=== PATIENT | female | born 1995 | race Caucasian/White ===

== ENCOUNTER 2016-08-01 15:22 | Emergency (ER) | payer MEDICAID ==
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
[2016-08-01 18:45] VITALS: BP 118/64
== END 2016-08-01 18:43 | disposition home or self-care (01) ==
LOC: ER 15:22
DX: S01.512A Laceration without foreign body of oral cavity, initial encounter (principal); S00.33XA Contusion of nose, initial encounter; R51 Headache; Y04.8XXA Assault by other bodily force, initial encounter
CPT/HCPCS: 99283

== ENCOUNTER 2016-09-08 18:39 | Emergency (ER) | payer MEDICAID ==
[2016-09-08] MEDS ORDERED: OXYCODONE-ACETAMINOPHEN 5-325 MG TABLET PO ONE (19:42)
[2016-09-08] MEDS ORDERED: ONDANSETRON 4 MG TAB.RAPDIS PO ONE (19:42)
--- NOTE | 2016-09-08 19:45 | ER Document Report ---
ED Medical Screen (RME) - General Chief Complaint: Abdominal Pain Stated Complaint: ABDOMINAL PAIN Notes: 20 year old female with RUQ and epigastric pain x2 weeks, much worse over the past day or so, became severe at work. Worse after eating. No N/V, no fever. No surgeries or reported PMH. TRAVEL OUTSIDE OF THE U.S. IN LAST 30 DAYS: No - Related Data Allergies/Adverse Reactions: No Known Allergies Allergy (Verified 08/01/16 16:09) Past Medical History - Social History Chew tobacco use (# tins/day): No Frequency of alcohol use: None Drug Abuse: Marijuana Renal/ Medical History: Denies: Hx Peritoneal Dialysis Physical Exam - Vital signs Vitals: Temp Pulse Resp BP Pulse Ox 98.0 F 74 16 125/59 L 98 09/08/16 19:19 09/08/16 19:19 09/08/16 19:19 09/08/16 19:19 09/08/16 19:19 - General General appearance: Alert, Anxious In distress: Mild - appears to be in some pain, appears mildly anxious - Abdominal Tenderness: Tender - definite tenderness in RUQ and epigastric area, worst in RUQ, positive fuentes's sign, Fuentes's sign Course - Re-evaluation Re-evalutation: patient with positive fuentes's sign on exam (limited by sitting). Ordering meds , U/S, discussed with Dr. Saxena per [facility] guidelines. - Vital Signs Vital signs: Temp Pulse Resp BP Pulse Ox 98.0 F 74 16 125/59 L 98 09/08/16 19:19 09/08/16 19:19 09/08/16 19:19 09/08/16 19:19 09/08/16 19:19
[2016-09-08 22:46] LABS: ABSOLUTE BASOPHILS # (AUTO) 0.1 10^3/uL (0.0-0.2); ABSOLUTE EOSINOPHILS # (AUTO) 0.1 10^3/uL (0.0-0.6); ABSOLUTE LYMPHOCYTES (AUTO) 3.3 10^3/uL (0.5-4.7); ABSOLUTE MONOCYTES (AUTO) 0.8 10^3/uL (0.1-1.4); BASOPHILS % (AUTO) 0.7 % (0-2); EOSINOPHILS % (AUTO) 0.6 % (0-6); HEMATOCRIT 44.8 % (36.0-47.0); HEMOGLOBIN 15.1 g/dL (12.0-15.5); HGB HCT DIFFERENCE 0.5; MEAN CORPUSCULAR HEMOGLOBIN 29.7 pg (27.0-33.4); MEAN CORPUSCULAR HGB CONC 33.8 g/dL (32.0-36.0); MEAN CORPUSCULAR VOLUME 88 fl (80-97); MONOCYTES % (AUTO) 6.3 % (3-13); RED BLOOD COUNT 5.11 10^6/uL (3.72-5.28); RED CELL DISTRIBUTION WIDTH 12.6 % (11.5-14.0); SEGMENTED NEUTROPHILS % (AUTO) 65.4 % (42-78); WHITE BLOOD COUNT 12.2 10^3/uL (4.0-10.5)
[2016-09-08 22:55] LABS: APPEARANCE,URINE SLIGHTLY-CLOUDY; BILIRUBIN,URINE NEGATIVE (NEGATIVE); GLUCOSE, URINE NEGATIVE (NEGATIVE); KETONES,URINE NEGATIVE (NEGATIVE); LEUKOCYTE ESTERASE,URINE NEGATIVE (NEGATIVE); NITRITE,URINE NEGATIVE (NEGATIVE); PROTEIN,URINE 30 mg/dL (NEGATIVE)
[2016-09-08 23:19] LABS: ALANINE AMINOTRANSFERASE 18 U/L (5-35); ALBUMIN 4.9 g/dL (3.7-5.6); ALKALINE PHOSPHATASE 97 U/L (50-135); ANION GAP 11 (5-19); ASPARTATE AMINO TRANSFERASE 37 U/L (5-30); BILIRUBIN,TOTAL 1.6 mg/dL (0.2-1.3); BLOOD UREA NITROGEN 12 mg/dL (7-20); CALCIUM 9.8 mg/dL (8.4-10.2); CARBON DIOXIDE 26 mmol/L (22-30); CHLORIDE 104 mmol/L (98-107); CREATININE RESULT 0.71 mg/dL (0.52-1.25); GLUCOSE 102 mg/dL (75-110); LIPASE 59.4 U/L (23-300); POTASSIUM 3.7 mmol/L (3.6-5.0); SODIUM 141.2 mmol/L (137-145); TOTAL PROTEIN 8.2 g/dL (6.3-8.2)
[2016-09-09] MEDS ORDERED: CEPHALEXIN 500 MG CAPSULE PO ONE (02:14)
--- NOTE | 2016-09-09 02:22 | ER Document Report ---
ED General - General Chief Complaint: Abdominal Pain Stated Complaint: ABDOMINAL PAIN Notes: Patient is a 20-year-old female without past medical history, no prior surgical history who presents with concerns of right upper quadrant abdominal pain as well as right flank pain. States the pain is intermittent over the last several months but was much worse and I which is what prompted her to come to the emergency room for further evaluation. Describes the pain as an intermittent, severe, stabbing pain. Nothing improves or worsens the pain. She denies history of similar symptoms prior to the last 1-2 months. She has not seen her primary care physician regarding today's concerns. She denies any dysuria, vaginal bleeding, vaginal discharge, vomiting or diarrhea. TRAVEL OUTSIDE OF THE [place] IN LAST 30 DAYS: No - Related Data Allergies/Adverse Reactions: No Known Allergies Allergy (Verified 08/01/16 16:09) Past Medical History - General Information source: Patient - Social History Smoking Status: Never Smoker Chew tobacco use (# tins/day): No Frequency of alcohol use: None Drug Abuse: Marijuana Family History: Reviewed & Not Pertinent Patient has suicidal ideation: No Patient has homicidal ideation: No Renal/ Medical History: Denies: Hx Peritoneal Dialysis Review of Systems - Review of Systems Notes: Constitutional: Negative for fever. HENT: Negative for sore throat. Eyes: Negative for visual changes. Cardiovascular: Negative for chest pain. Respiratory: Negative for shortness of breath. Gastrointestinal: Positive for abdominal pain, negative for vomiting or diarrhea. Genitourinary: Negative for dysuria. Musculoskeletal: Negative for back pain. Skin: Negative for rash. Neurological: Negative for headaches, weakness or numbness. 10 point ROS negative except as marked above and in HPI. Physical Exam - Vital signs Vitals: Temp Pulse Resp BP Pulse Ox 98.0 F 74 16 125/59 L 98 09/08/16 19:19 09/08/16 19:19 09/08/16 19:19 09/08/16 19:19 09/08/16 19:19 Interpretation: Normal Notes: PHYSICAL EXAMINATION: GENERAL: Well-appearing, well-nourished and in no acute distress. HEAD: Atraumatic, normocephalic. EYES: Pupils equal round and reactive to light, extraocular movements intact, sclera anicteric, conjunctiva are normal. ENT: nares patent, oropharynx clear without exudates. Moist mucous membranes. NECK: Normal range of motion, supple without lymphadenopathy LUNGS: Breath sounds clear to auscultation bilaterally and equal. No wheezes rales or rhonchi. HEART: Regular rate and rhythm without murmurs ABDOMEN: Soft, nontender, normoactive bowel sounds. No guarding, no rebound. No masses appreciated. EXTREMITIES: Normal range of motion, no pitting or edema. No cyanosis. NEUROLOGICAL: No focal neurological deficits. Moves all extremities spontaneously and on command. PSYCH: Normal mood, normal affect. SKIN: Warm, Dry, normal turgor, no rashes or lesions noted. Course - Re-evaluation Re-evalutation: 09/09/16 02:20 Patient presents with right upper quadrant and right flank pain. Abdominal exam is overall benign at the time of my assessment. Right upper quadrant ultrasound does not demonstrate any evidence of an acute cholecystitis. Urinalysis does demonstrate hematuria without pyuria. Patient denies currently being on her menstrual cycle. Her clinical history could also be consistent with a nephrolithiasis so a CT scan was obtained without contrast to evaluate for possible nephrolithiasis. This likewise was unremarkable without any evidence of acute pathology. Patient continued to be pain free throughout her time in the emergency department. Will empirically treat with antibiotics to see if the hematuria as a result of a cystitis although have instructed the patient that her urinalysis does not show an active infection and culture data will be obtained.At this time will discharge with return precautions and follow- up recommendations. Verbal discharge instructions given a the bedside and opportunity for questions given. Medication warnings reviewed. Patient is in agreement with this plan and has verbalized understanding of return precautions and the need for primary care follow-up in the next 24-72 hours. - Vital Signs Vital signs: Temp Pulse Resp BP Pulse Ox 98.0 F 74 16 125/59 L 98 09/08/16 19:19 09/08/16 19:19 09/08/16 19:19 09/08/16 19:19 09/08/16 19:19 - Laboratory Result Diagrams: 09/08/16 22:37 09/08/16 22:37 Laboratory results interpreted by me: 09/08/16 09/08/16 09/08/16 22:37 22:37 22:37 WBC 12.2 H Total Bilirubin 1.6 H AST 37 H Urine Protein 30 H Urine Blood LARGE H Urine Urobilinogen 2.0 H - Diagnostic Test Radiology reviewed: Reports reviewed Discharge - Discharge Clinical Impression: Right flank pain, Hematuria Condition: Good Disposition: HOME, SELF-CARE Additional Instructions: You have been seen in the Emergency Department (ED) for abdominal pain. Your evaluation did not identify a clear cause of your symptoms but was generally reassuring. We will trial a dose of antibiotics to see if this could clear the blood in your urine as your CT scan does not demonstrate any kidney stones. Please follow up with your doctor as soon as possible regarding today's emergent visit and the symptoms that are bothering you. Return to the ED if your abdominal pain worsens or fails to improve, you develop bloody vomiting, bloody diarrhea, you are unable to tolerate fluids due to vomiting, fever greater than 101, or other symptoms that concern you. Prescriptions: Cephalexin Monohydrate [Keflex 500 mg Capsule] 500 mg PO QID #20 capsule Referrals: TACOS GR MD [Primary Care Provider] - Follow up in 3-5 days
[2016-09-09 02:38] VITALS: BP 118/71
== END 2016-09-09 02:38 | disposition home or self-care (01) ==
LOC: ER 18:39
DX: R10.9 Unspecified abdominal pain (principal); R10.11 Right upper quadrant pain; R31.9 Hematuria, unspecified
CPT/HCPCS: 99284; 36415; 87086; 83690; 84703; 85025; 80053; 81001; 76705; 74176; S0119

== ENCOUNTER 2019-04-21 23:51 | Emergency (ER) | payer SELFPAY ==
[2019-04-22] MEDS ORDERED: ONDANSETRON HCL INJ/PF 4 MG/2 ML SDV IV ONE (00:33)
[2019-04-22] MEDS ORDERED: NORMAL SALINE 1000 ML 1,000 ML IV ONE ×2 (00:33→02:15)
[2019-04-22 00:45] LABS: ABSOLUTE BASOPHILS # (AUTO) 0.1 10^3/uL (0.0-0.2); ABSOLUTE EOSINOPHILS # (AUTO) 0.7 10^3/uL (0.0-0.6); ABSOLUTE LYMPHOCYTES (AUTO) 2.1 10^3/uL (0.5-4.7); ABSOLUTE NEUT (AUTO) 12.3 10^3/uL (1.7-8.2); BASOPHILS % (AUTO) 0.5 % (0-2); EOSINOPHILS % (AUTO) 4.5 % (0-6); HEMATOCRIT 42.3 % (36.0-47.0); HEMOGLOBIN 14.3 g/dL (12.0-15.5); LYMPHOCYTES % (AUTO) 13.2 % (13-45); MEAN CORPUSCULAR HEMOGLOBIN 29.5 pg (27.0-33.4); MEAN CORPUSCULAR HGB CONC 33.8 g/dL (32.0-36.0); MEAN CORPUSCULAR VOLUME 87 fl (80-97); MONOCYTES % (AUTO) 6.2 % (3-13); PLATELET COUNT 300 10^3/uL (150-450); RED BLOOD COUNT 4.85 10^6/uL (3.72-5.28); RED CELL DISTRIBUTION WIDTH 12.8 % (11.5-14.0); SEGMENTED NEUTROPHILS % (AUTO) 75.6 % (42-78); TOTAL CELLS COUNTED % (AUTO) 100 %; WHITE BLOOD COUNT 16.3 10^3/uL (4.0-10.5)
[2019-04-22 01:00] LABS: ALBUMIN 4.1 g/dL (3.5-5.0); ALKALINE PHOSPHATASE 86 U/L (38-126); ANION GAP 10 (5-19); ASPARTATE AMINO TRANSFERASE 87 U/L (14-36); BILIRUBIN,DIRECT 0.1 mg/dL (0.0-0.4); BILIRUBIN,TOTAL 0.5 mg/dL (0.2-1.3); BLOOD UREA NITROGEN 11 mg/dL (7-20); CALCIUM 9.1 mg/dL (8.4-10.2); CARBON DIOXIDE 27 mmol/L (22-30); CHLORIDE 101 mmol/L (98-107); GLUCOSE 96 mg/dL (75-110); POTASSIUM 3.9 mmol/L (3.6-5.0); TOTAL PROTEIN 6.5 g/dL (6.3-8.2)
--- NOTE | 2019-04-22 01:04 | ER Document Report ---
ED General - General Chief Complaint: Accidental Overdose Stated Complaint: OVERDOSE Time Seen by Provider: 04/22/19 00:05 Primary Care Provider: TACOS GR MD [COMMUNITY BASED STAFF] - Follow up as needed Mode of Arrival: Medic Information source: Patient TRAVEL OUTSIDE OF THE [place] IN LAST 30 DAYS: No - HPI Notes: Patient is brought by ambulance to the hospital. Patient states somewhere around 7:30 PM tonight she snorted Percocet. She states that she about $30 worth but does not know exactly what she was given. She states she did no other drugs. She states she did not inject anything or swallow anything. No alcohol. She states the only thing she did was snort the Percocet. She states she has never done this before. Her significant other is in the room states that he did not know she had done this. He did not notice anything abnormal but approximately 10:00pm patient became unresponsive. Ambulance was called and Narcan was given approximately 10:50 PM. Patient states he currently feels nauseous but otherwise has no complaints. She states she has no suicidal or homicidal ideations. She states this was not a plan to harm herself. She states she did do to relieve some stress. She states she smokes marijuana but otherwise does not use any illicit drugs. - Related Data Allergies/Adverse Reactions: No Known Allergies Allergy (Verified 08/01/16 16:09) Past Medical History - General Information source: Patient - Social History Smoking Status: Former Smoker Frequency of alcohol use: Occasional Drug Abuse: Marijuana, Other - Percocet Family History: Reviewed & Not Pertinent Patient has suicidal ideation: No Patient has homicidal ideation: No Renal/ Medical History: Denies: Hx Peritoneal Dialysis Review of Systems - Review of Systems Constitutional: denies: Chills, Fever Cardiovascular: denies: Chest pain, Palpitations Respiratory: denies: Cough, Short of breath Gastrointestinal: Nausea -: Yes All other systems reviewed and negative Physical Exam - Vital signs Interpretation: Normal - General General appearance: Appears well, Alert - HEENT Head: Normocephalic, Atraumatic Eyes: Normal Pupils: PERRL - Respiratory Respiratory status: No respiratory distress Chest status: Nontender Breath sounds: Normal Chest palpation: Normal - Cardiovascular Rhythm: Regular Heart sounds: Normal auscultation Murmur: No - Abdominal Inspection: Normal Distension: No distension Bowel sounds: Normal Tenderness: Nontender Organomegaly: No organomegaly - Back Back: Normal, Nontender - Extremities General upper extremity: Normal inspection, Nontender, Normal color, Normal ROM, Normal temperature General lower extremity: Normal inspection, Nontender, Normal color, Normal ROM, Normal temperature, Normal weight bearing. No: Bhupendra's sign - Neurological Neuro grossly intact: Yes Cognition: Normal Orientation: AAOx4 [place] Coma Scale Eye Opening: Spontaneous [place] Coma Scale Verbal: Oriented Guillermina Coma Scale Motor: Obeys Commands [place] Coma Scale Total: 15 Speech: Normal Motor strength normal: LUE, RUE, LLE, RLE Sensory: Normal - Psychological Associated symptoms: Normal affect, Normal mood - Skin Skin Temperature: Warm Skin Moisture: Dry Skin Color: Normal Course - Re-evaluation Re-evalutation: 04/22/19 02:07 Patient reevaluated at this time. She is resting comfortably in the bed without any complaints. Her vital signs are normal except bp is trending down slightly. currently 99sys but no complaints. will rebolus with fluid. - Laboratory Result Diagrams: 04/22/19 00:23 04/22/19 00:23 Laboratory results interpreted by me: 04/22/19 04/22/19 00:23 00:23 WBC 16.3 H Absolute Neuts (auto) 12.3 H Absolute Eos (auto) 0.7 H AST 87 H Discharge - Discharge Clinical Impression: Narcotic overdose Qualifiers: Encounter type: initial encounter Injury intent: accidental or unintentional Qualified Code(s): T40.601A - Poisoning by unspecified narcotics, accidental (unintentional), initial encounter Condition: Stable Disposition: HOME, SELF-CARE Instructions: Narcotic Abuse ([facility]) Additional Instructions: Using illegal drugs is very dangerous and can lead to . You were very close to dying tonight. Please seek help for this as soon as possible by calling [place] [facility] at . Referrals: TACOS GR MD [COMMUNITY BASED STAFF] - Follow up in 3-5 days
[2019-04-22 04:05] LABS: APPEARANCE,URINE CLOUDY; BILIRUBIN,URINE NEGATIVE (NEGATIVE); COLOR,URINE YELLOW; GLUCOSE, URINE NEGATIVE (NEGATIVE); KETONES,URINE TRACE mg/dL (NEGATIVE); LEUKOCYTE ESTERASE,URINE NEGATIVE (NEGATIVE); NITRITE,URINE NEGATIVE (NEGATIVE); PROTEIN,URINE 100 mg/dL (NEGATIVE); URINE SPECIFIC GRAVITY 1.023
[2019-04-22 04:23] LABS: URINE AMPHETAMINES SCREEN NEGATIVE; URINE BARBITURATES SCREEN NEGATIVE; URINE BENZODIAZEPINES SCREEN UNCONFIRMED POSITIVE; URINE COCAINE SCREEN NEGATIVE; URINE MARIJUANA (THC) SCREEN UNCONFIRMED POSITIVE; URINE METHADONE SCREEN NEGATIVE; URINE PHENCYCLIDINE SCREEN NEGATIVE
[2019-04-22 05:43] VITALS: BP 102/53
[2019-04-23 08:37] LABS: HEPATITIS C VIRUS AB <0.1 s/co ratio (0.0-0.9)
[2019-04-23 09:26] LABS: HEPATITS B SURFACE ANTIGEN Negative (Negative)
== END 2019-04-22 05:42 | disposition home or self-care (01) ==
LOC: ER 23:51
DX: T40.601A Poisoning by unspecified narcotics, accidental (unintentional), initial encounter (principal); R11.0 Nausea; F12.90 Cannabis use, unspecified, uncomplicated; Z87.891 Personal history of nicotine dependence
CPT/HCPCS: 99284; 96361; 96374; 36415; 85025; 81025; 80053; 81001; 87340; 86701; 80307; 86803; 86804; J2405; J7030

== ENCOUNTER 2019-08-29 14:13 | Emergency (ER) | payer SELFPAY ==
--- NOTE | 2019-08-29 15:41 | ER Document Report ---
ED Medical Screen (RME) - General Chief Complaint: Abdominal Pain Stated Complaint: FLANK PAIN Time Seen by Provider: 08/29/19 15:33 TRAVEL OUTSIDE OF THE [place].S[place] IN LAST 30 DAYS: No - HPI Notes: 08/29/19 15:40 23-year-old female to the emergency department with complaints of right upper quadrant abdominal pain that has been ongoing for the past week. She denies associated nausea vomiting. She states it does seem to get a little bit worse when she eats. She states she feels like she has a lot of gas. She denies any chest pain, shortness of breath, nausea, vomiting, diarrhea. She denies any sick contacts. She denies possibility of . I performed a medical screening exam on the patient and determined that she will need further evaluation by main side provider. I have placed initial orders and imaging studies to help expedite her care. - Related Data Allergies/Adverse Reactions: No Known Allergies Allergy (Verified 08/01/16 16:09) Past Medical History - Social History Frequency of alcohol use: Social Drug Abuse: None Renal/ Medical History: Denies: Hx Peritoneal Dialysis Physical Exam - Vital signs Vitals: Temp Pulse Resp BP Pulse Ox 98.3 F 67 16 125/73 100 08/29/19 15:11 08/29/19 15:11 08/29/19 15:11 08/29/19 15:11 08/29/19 15:11 Course - Vital Signs Vital signs: Temp Pulse Resp BP Pulse Ox 98.3 F 67 16 125/73 100 08/29/19 15:11 08/29/19 15:11 08/29/19 15:11 08/29/19 15:11 08/29/19 15:11
--- NOTE | 2019-08-29 16:48 | RADIOLOGY REPORT (SQ) ---
EXAM DESCRIPTION: U/S ABDOMEN LIMITED W/O DOP COMPLETED DATE/TIME: 08/29/2019 4:38 pm REASON FOR STUDY: RUQ abd pain COMPARISON: Abdominal ultrasound 09/08/2016 CT abdomen pelvis 09/09/2016 TECHNIQUE: Dynamic and static grayscale images acquired of the right upper quadrant abdomen and tomas rded on PACS. Additional selected color Doppler and spectral images recorded. LIMITATIONS: Midline bowel gas, body habitus FINDINGS: PANCREAS: Not well seen LIVER: No masses. Echotexture normal. LIVER VASCULATURE: Normal directional flow of the main portal vein and hepatic veins. GALLBLADDER: No stones. Normal wall thickness. No pericholecystic fluid. ULTRASOUND-DETECTED SHELTON'S SIGN: Negative. INTRAHEPATIC DUCTS AND COMMON DUCT: CBD and intrahepatic ducts normal caliber. No filling defects. INFERIOR VENA CAVA: Normal flow. AORTA: No aneurysm. RIGHT KIDNEY: Normal size. Normal echogenicity. No solid or suspicious masses. No hydronephrosis. No calcifications. PERITONEAL AND RIGHT PLEURAL SPACE: No ascites or effusions. OTHER: No other significant findings. IMPRESSION: No gallstones. No gallbladder wall thickening. No right upper quadrant free fluid. Li munira unremarkable. TECHNICAL DOCUMENTATION: JOB ID: [id number] [employer] ([employer])- All Rights Reserved Reading location - IP/workstation name: [email or web address]
[2019-08-29 17:25] LABS: APPEARANCE,URINE SLIGHTLY-CLOUDY; BILIRUBIN,URINE NEGATIVE (NEGATIVE); COLOR,URINE AMBER; GLUCOSE, URINE NEGATIVE (NEGATIVE); KETONES,URINE 20 mg/dL (NEGATIVE); LEUKOCYTE ESTERASE,URINE NEGATIVE (NEGATIVE); NITRITE,URINE NEGATIVE (NEGATIVE); PROTEIN,URINE 30 mg/dL (NEGATIVE); URINE SPECIFIC GRAVITY 1.029
[2019-08-29 17:34] LABS: ABSOLUTE BASOPHILS # (AUTO) 0.1 10^3/uL (0.0-0.2); ABSOLUTE EOSINOPHILS # (AUTO) 0.1 10^3/uL (0.0-0.6); ABSOLUTE LYMPHOCYTES (AUTO) 2.4 10^3/uL (0.5-4.7); ABSOLUTE MONOCYTES (AUTO) 0.7 10^3/uL (0.1-1.4); ABSOLUTE NEUT (AUTO) 6.6 10^3/uL (1.7-8.2); BASOPHILS % (AUTO) 0.6 % (0-2); EOSINOPHILS % (AUTO) 1.5 % (0-6); HEMATOCRIT 42.7 % (36.0-47.0); HEMOGLOBIN 14.7 g/dL (12.0-15.5); MEAN CORPUSCULAR HEMOGLOBIN 30.1 pg (27.0-33.4); MEAN CORPUSCULAR HGB CONC 34.5 g/dL (32.0-36.0); MEAN CORPUSCULAR VOLUME 88 fl (80-97); MONOCYTES % (AUTO) 6.9 % (3-13); PLATELET COUNT 338 10^3/uL (150-450); RED BLOOD COUNT 4.89 10^6/uL (3.72-5.28); RED CELL DISTRIBUTION WIDTH 13.1 % (11.5-14.0); TOTAL CELLS COUNTED % (AUTO) 100 %; WHITE BLOOD COUNT 9.8 10^3/uL (4.0-10.5)
[2019-08-29 17:55] LABS: ALBUMIN 4.2 g/dL (3.5-5.0); ALKALINE PHOSPHATASE 81 U/L (38-126); ANION GAP 10 (5-19); ASPARTATE AMINO TRANSFERASE 20 U/L (14-36); BILIRUBIN,DIRECT 0.1 mg/dL (0.0-0.4); BILIRUBIN,TOTAL 1.1 mg/dL (0.2-1.3); BLOOD UREA NITROGEN 8 mg/dL (7-20); CALCIUM 9.5 mg/dL (8.4-10.2); CARBON DIOXIDE 25 mmol/L (22-30); CHLORIDE 104 mmol/L (98-107); GLUCOSE 87 mg/dL (75-110); POTASSIUM 3.9 mmol/L (3.6-5.0); TOTAL PROTEIN 7.1 g/dL (6.3-8.2)
--- NOTE | 2019-08-29 20:00 | ER Document Report ---
ED General - General Chief Complaint: Abdominal Pain Stated Complaint: FLANK PAIN Time Seen by Provider: 08/29/19 15:33 TRAVEL OUTSIDE OF THE [place] IN LAST 30 DAYS: No - HPI Notes: This is a 23-year-old female who presents to the emergency department complaining of right upper quadrant pain that is been present for approximately a week. Patient states pain is worse when she is standing and/or moving. Patient states her last menstrual period was approximately 2 to 3 weeks ago. Patient states she has a history of irregular menstrual cycles. Patient denies fever, chills, chest pain, shortness of breath, nausea, vomiting. Patient denies prior history of . Patient states she is sexually active. Patient states that she is not using any contraceptive currently. - Related Data Allergies/Adverse Reactions: No Known Allergies Allergy (Verified 08/01/16 16:09) Past Medical History - Social History Smoking Status: Never Smoker Frequency of alcohol use: Social Drug Abuse: None Family History: Reviewed & Not Pertinent Patient has suicidal ideation: No Patient has homicidal ideation: No Renal/ Medical History: Denies: Hx Peritoneal Dialysis Physical Exam - Vital signs Vitals: Temp Pulse Resp BP Pulse Ox 98.3 F 67 16 125/73 100 08/29/19 15:11 08/29/19 15:11 08/29/19 15:11 08/29/19 15:11 08/29/19 15:11 Course - Re-evaluation Re-evalutation: 08/29/19 22:20 Differential diagnosis: Biliary colic, ureteral stone, ectopic 08/29/19 22:21 Results of ED MSE discussed with patient. All questions were answered prior to discharge. When asked if everything about the patient's visit was explained to her in a manner in which she understood, patient answered in the affirmative. Emergency signs and symptoms, reasons to return to the emergency department discussed with patient. - Vital Signs Vital signs: Temp Pulse Resp BP Pulse Ox 98.3 F 67 16 125/73 100 08/29/19 15:11 08/29/19 15:11 08/29/19 15:11 08/29/19 15:11 08/29/19 15:11 - Laboratory Result Diagrams: 08/29/19 16:59 08/29/19 16:59 Laboratory results interpreted by me: 08/29/19 08/29/19 08/29/19 16:22 16:59 16:59 Serum HCG, Qual POSITIVE H Beta HCG, Quant 37909.00 H Urine Protein 30 H Urine Ketones 20 H Urine Urobilinogen 2.0 H - Diagnostic Test Radiology reviewed: Reports reviewed Discharge - Discharge Clinical Impression: Acute abdominal pain, Intrauterine Condition: Good Disposition: HOME, SELF-CARE Instructions: Abdominal Pain ([facility]) Additional Instructions: Return to the Emergency Department without delay if any worse. HOME CARE INSTRUCTIONS & INFORMATION: Thank you for choosing us for your medical needs. We hope you're satisfied with the care you received. After you leave, you must properly care for your problem and, at the same time, observe its progress. Any condition can change. Some illnesses can change rapidly over hours or days. If your condition worsens, return to the Emergency Department or see your physician promptly. ABOUT YOUR X-RAYS AND EKG'S: If you had an EKG or X-rays taken, they have been read by the Emergency Physician. The X-rays and EKG's will also be read by a Radiologist or Traffic Control Technician within 24 hours. If discrepancies are noted, you will be notified by telephone. Please be certain the ED has a correct telephone number & address where you can be reached. Also, realize that some fractures or abnormalities do not show up on initial X-rays. If your symptoms continue, see your physician. ABOUT YOUR LABORATORY TEST: If you had laboratory tests, the results have been reviewed by the Emergency Physician. Some test results (for example cultures) may not be available for several days. You will be contacted if any test result shows you need additional treatment. Please be certain the ED has a correct telephone number and address where you can be reached. ABOUT YOUR MEDICATIONS: You will receive instructions on how to take your medicine on the prescription label you receive. Additional information may be provided by the Pharmacy. If you have questions afterwards, call the ED for clarification or further instructions. Some prescribed medications may cause drowsiness. Do not perform tasks such as driving a car or operating machinery without consulting your Pharmacist. If you feel you need a refill of pain medication, your condition will need re-evaluation. Please do not call for a refill of any medication. ABOUT YOUR SIGNATURE: Signature of this document acknowledges to followin. Understanding that you received emergency treatment and that you may be released before al medical problems are known or treated. Please be certain the ED has a correct phone number & address where you can be reached. 2. Acknowledgement that you will arrange for follow-up care as recommended. 3. Authorization for the Emergency Physician to provide information to your follow-up Physician in order to maximize your care. AT ANY TIME, IF YOUR SYMPTOMS CHANGE SIGNIFICANTLY OR WORSEN OR YOU DEVELOP NEW SYMPTOMS, RETURN TO THE EMERGENCY DEPARTMENT IMMEDIATELY FOR RE-EVALUATION. OUR GOAL IS TO PROVIDE EXCELLENT MEDICAL CARE! WE HOPE THAT WE HAVE MET YOUR EXPECTATIONS DURING YOUR EMERGENCY DEPARTMENT VISIT AND THAT YOU FEEL YOU HAVE RECEIVED EXCELLENT CARE! You are . care is best started as early in as possible. If you're unsure about continuing this , you should discuss this with your physician or with pallet stone positioner at [facility]. You should take only medications approved by your physician. Acetaminophen can safely be taken for minor pains. As a rule, medication for chronic conditions such as asthma or seizures can safely be continued. You should discuss with the physician every medicine you take. Any regular exercise program can be continued. Talk to your physician, however, before engaging in competitive or demanding sports. Alcohol, smoking, and "street drugs" are dangerous to your baby. Cocaine is especially dangerous. Don't use any illicit drugs! Forms: Return to Work Referrals: MARLEY FUNES MD [ACTIVE STAFF] - Follow up in 1 week
--- NOTE | 2019-08-29 22:04 | RADIOLOGY REPORT (SQ) ---
US PELVIS EXAM DATE: 08/29/2019 7:46 PM ART INSTRUCTOR HISTORY: Early . Pelvic pain. COMPARISON: None. TECHNIQUE: Grayscale, color Doppler, and spectral Doppler ultrasound images of the pelvis were obtained. FINDINGS: Limited study due to patient's body habitus. There is an intrauterine gestational sac with a mean sac diameter of 0.9 cm corresponding to 5 weeks 5 days of . There is a yolk sac but no pole visualized. The cervix contains a trace amount of fluid and measures 2 cm in length. The right ovary is not visualized. The left ovary measures 2.5 cm and contains color Doppler blood flow. No pelvic free fluid is seen. IMPRESSION: Intrauterine gestational sac corresponding to 5 weeks 5 days of . No pole is seen at this time. Findings may represent early . Recommend short-term follow-up ultrasound imaging.
[2019-08-29 22:53] VITALS: BP 111/73
== END 2019-08-29 23:03 | disposition home or self-care (01) ==
LOC: ER 14:13
DX: O26.899 Other specified pregnancy related conditions, unspecified trimester (principal); R10.11 Right upper quadrant pain; Z3A.00 Weeks of gestation of pregnancy not specified
CPT/HCPCS: 36415; 76705; 76817; 80053; 81001; 83690; 84702; 84703; 85025; 93976; 99284